=== PATIENT | male | born 1990 | race Caucasian/White ===

== ENCOUNTER 2024-07-10 21:19 | Emergency (ER) | payer OTHER, SELFPAY ==
[2024-07-10 21:32] VITALS: BP 127/93; PULSE 85; RESP 16; TEMP 36.7; O2SAT 96
--- NOTE | 2024-07-10 21:54 | CRLHL7_ITS ---
For Patients: As a result of the Century Cures Act, medical imaging exams and procedure reports are released immediately into your electronic medical record. You may view this report before your referring provider. If you have questions, please contact your health care provider. INDICATION: Patient swallowed chicken bone. Pain upon swallowing. TECHNIQUE: CT soft tissue of the neck was acquired without IV contrast. COMPARISON: None. FINDINGS: Skull base: Unremarkable. Pharynx/Larynx/Trachea: Epiglottis is normal. Prominent bilateral palatine tonsils without obvious fluid collection. There is mild resultant narrowing of the oropharynx with airway remaining patent throughout. No evidence of radiopaque foreign body. Salivary glands: Unremarkable. Thyroid gland: Unremarkable. No significant nodules. Lymph nodes: No suspicious lymphadenopathy. Vessels: Unremarkable for age. Bones: Unremarkable for age. Misc: No suspicious soft tissue mass or fluid collection. Lung apices: Please refer to separately dictated CT of the chest for discussion of intrathoracic contents. IMPRESSION: 1. No radiopaque foreign body identified. 2. Prominence of the bilateral palatine tonsils with mild resultant narrowing of the oropharynx. No obvious fluid collection. Airway remains patent throughout. Please note that all CT scans at this facility use dose modulation, iterative reconstruction, and/or weight-based dosing when appropriate to reduce radiation dose to as low as reasonably achievable. Dictated by Toro Wise MD @ 07/10/2024 10:58:14 PM (Electronically Signed)
--- NOTE | 2024-07-10 21:54 | CRLHL7_ITS ---
For Patients: As a result of the Century Cures Act, medical imaging exams and procedure reports are released immediately into your electronic medical record. You may view this report before your referring provider. If you have questions, please contact your health care provider. INDICATION: Patient swallowed chicken bone. Pain upon swallowing. TECHNIQUE: CT chest without contrast. COMPARISON: None. FINDINGS: Lungs and pleura: No focal consolidation. No pleural effusion or pneumothorax. Tiny right upper lobe nodule measuring 2 mm, likely partially calcified, indicative tiny calcified granuloma. Airways appear patent without evidence of radiopaque foreign body Heart and vasculature: No cardiomegaly or pericardial effusion. Main pulmonary artery normal in caliber. No thoracic aortic aneurysm. Lymph nodes/mediastinum: No suspicious lymphadenopathy. No pneumomediastinum. Chest wall: No suspicious chest wall mass or fluid collection. Upper abdomen: Thin, linear high density material is present within the stomach. No radiopaque material appreciated within the esophagus. No acute abnormality. Bones: No acute abnormality. IMPRESSION: 1. No radiopaque foreign body identified within the patent airways or esophagus. 2. Thin, linear high density material present within the stomach may reflect chicken bone described in clinical history. 3. No acute intrathoracic pathology. Please note that all CT scans at this facility use dose modulation, iterative reconstruction, and/or weight-based dosing when appropriate to reduce radiation dose to as low as reasonably achievable. Dictated by Toro Wise MD @ 07/10/2024 11:03:24 PM (Electronically Signed)
--- NOTE | 2024-07-10 22:08 | ED.GENADULT ---
HPI - General Adult General Time Seen by Provider: 22:08 Date Seen: 07/10/24 Chief complaint: Skin/Abscess/Foreign Body Stated complaint: chicken bone in throat Time Seen by Provider: 07/10/24 22:08 Source: patient Mode of arrival: ambulatory Limitations: no limitations History of Present Illness HPI narrative: 33-year-old male who comes in with throat pain and concern for foreign body in the throat. Patient feels like he has a chicken bone stuck in his throat for the last couple of hours. He has pain when he swallows but is able to swallow his secretions. No abdominal pain, no nausea vomiting. Related Data Home Medications ?Medication ?Instructions ?Recorded ?Confirmed No Known Home Medications 07/10/24 07/10/24 Previous Rx's ?Medication ?Instructions ?Recorded lidocaine HCl 2 % mucosal solution 10 ml PO Q6H PRN pain #100 mL 07/10/24 (Lidocaine Viscous) Allergies Allergy/AdvReac Type Severity Reaction Status Date / Time No Known Drug Allergies Allergy Verified 07/10/24 21:35 Exam Narrative: Exam Narrative: General: Well-developed and well-nourished, no acute distress. No difficulty breathing and handling secretions without difficulty. Head: Atraumatic and normocephalic Eyes: Pupils are equal reactive, extraocular motions intact, conjunctiva clear ENT: External nose and ears are normal, posterior pharynx without erythema or exudate Neck: No midline cervical tenderness, full spontaneous range of motion the neck, trachea midline, no adenopathy Heart: Regular rate and rhythm no murmurs or thrills Lungs: Clear to auscultation bilaterally without wheezes or crackles Abdomen: Soft, nontender, nondistended with active bowel sounds Musculoskeletal: No tenderness, deformity, or edema Neurologic: Awake, alert, and oriented x3, no gross focal neurologic deficits, cranial nerves intact as tested Psych: Mood and affect are appropriate Skin: No rashes Const: Vital Signs, click to edit/add: Vital Signs - 24 hr 07/10/24 21:32 Temperature 98.1 F Pulse Rate [Pulse Oximeter] 85 Respiratory Rate 16 Blood Pressure [Le ft Upper Arm] 127/93 H Pulse Oximetry 96 Oxygen Delivery Me thod Room Air Course Course ED Course: Reviewed [place] [facility], no prior records. CT scan of the back independently interpreted by me without evidence of perforation or foreign body, CT scan of the chest independently interpret on a meeting with no esophageal perforation or foreign body, there is a bony foreign body in the distal stomach consistent with swallowed a chicken bone as reported by patient. Patient is not having breathing or swallowing difficulty, no abdominal pain. We discussed conservative treatment at this point, I did consider consulting GI for possible EGD given foreign body in the stomach but this likely will pass through the test without difficulty. We did discuss signs and symptoms of perforation and return to emergency department precautions given. Patient is stable for discharge. Viscous lidocaine prescribed to help with symptom management. Vital Signs Vital signs: Initial Vital Signs Temperature 98.1 F 07/10/24 21:32 Temperature Source Temporal Artery Scan 07/10/24 21:32 Pulse Rate 85 07/10/24 21:32 Respiratory Rate 16 07/10/24 21:32 Blood Pressure 127/93 H 07/10/24 21:32 Blood Pressure Mean 104 07/10/24 21:32 Blood Pressure Position Sitting 07/10/24 21:32 Pulse Oximetry 96 07/10/24 21:32 Oxygen Delivery Method Room Air 07/10/24 21:32 Vital Signs Temperature 98.1 F 07/10/24 21:32 Pulse Rate 85 07/10/24 21:32 Respiratory Rate 16 07/10/24 21:32 Blood Pressure 127/93 H 07/10/24 21:32 Pulse Oximetry 96 07/10/24 21:32 Oxygen Delivery Method Room Air 07/10/24 21:32 Temperature 98.1 F 07/10/24 21:32 Pulse Rate 85 07/10/24 21:32 Respiratory Rate 16 07/10/24 21:32 Blood Pressure 127/93 H 07/10/24 21:32 Pulse Oximetry 96 07/10/24 21:32 Oxygen Delivery Method Room Air 07/10/24 21:32 Discharge Plan Discharge Clinical Impression: Esophageal abrasion, Foreign body, swallowed Patient Disposition: Home, Self-Care Condition: Stable Instructions: Foreign Body Ingestion (ED) Additional Instructions: If you develop severe abdominal pain, large amount of blood in the stool, or vomiting return to the emergency department Soft/liquid diet for 24 hours Prescriptions: New lidocaine HCl [Lidocaine Viscous] 2 % solution 10 ml PO Q6H PRN (Reason: pain) Qty: 100 0RF No Action No Known Home Medications Stand Alone Forms: MyHealth Info Instructions
[2024-07-10 22:36] VITALS: BP 122/74; PULSE 79; RESP 16; TEMP 36.7; O2SAT 96
[2024-07-10 22:37] VITALS: BP 122/74; PULSE 79; RESP 16; TEMP 36.7
== END 2024-07-10 22:38 | disposition home or self-care (01) ==
LOC: ED 22:36
PROVIDERS: Emergency Provider Family Medicine
DX: S27.818A Other injury of esophagus (thoracic part), initial encounter (principal); T18.2XXA Foreign body in stomach, initial encounter; W44.F3XA Food entering into or through a natural orifice, initial encounter
CPT/HCPCS: 70490; 71250; 99284; A9270